=== PATIENT | male | born 1970 ===

== ENCOUNTER 2018-05-31 13:20 | Emergency (ER) | payer MEDICAID, OTHER ==
[2018-05-31 13:21] VITALS: BMI 20.5
[2018-05-31 13:25] VITALS: TEMP 98
--- NOTE | 2018-05-31 13:47 | ED PDOC ---
HPI: General Adult Time Seen by Provider: 05/31/18 13:30 Chief Complaint (Nursing): Substance Abuse Chief Complaint (Provider): Substance Abuse History Per: Patient History/Exam Limitations: no limitations Onset/Duration Of Symptoms: Hrs Current Symptoms Are (Timing): Still Present Additional Complaint(s): 48 year old male presents to ED via EMS for substance abuse. Patient admits to snorting heroin and drinking alcohol. Otherwise, he denies any other complaints. PMD: no family provider Past Medical History Reviewed: Historical Data, Nursing Documentation, Vital Signs Vital Signs: Last Vital Signs Temp 98 F 05/31/18 13:22 Pulse 82 05/31/18 13:22 Resp 18 05/31/18 13:22 BP 117/71 05/31/18 13:22 Pulse Ox 99 05/31/18 13:22 - Medical History PMH: Anxiety, Depression, Schizophrenia Denies: Diabetes, Hepatitis, HIV, HTN, Seizures, Sexually Transmitted Disease - Family History Family History: States: Unknown Family Hx - Social History Current smoker - smoking cessation education provided: Yes Drugs: Other (heroin) - Immunization History Hx Tetanus Toxoid Vaccination: No Hx Influenza Vaccination: No Hx Pneumococcal Vaccination: No - Home Medications Home Medications: Ambulatory Orders Medication Instructions Recorded No Known Home Med 05/16/17 - Allergies Allergies/Adverse Reactions: Allergies Allergy/AdvReac Type Severity Reaction Status Date / Time No Known Allergies Allergy Verified 10/16/17 18:23 Review of Systems ROS Statement: Except As Marked, All Systems Reviewed And Found Negative Constitutional: Negative for: Fever, Chills Cardiovascular: Negative for: Chest Pain Respiratory: Negative for: Cough, Shortness of Breath Gastrointestinal: Negative for: Nausea, Vomiting, Abdominal Pain, Diarrhea Neurological: Negative for: Weakness, Numbness Psych: Positive for: Other (substance abuse) Physical Exam - Reviewed Nursing Documentation Reviewed: Yes Vital Signs Reviewed: Yes - Physical Exam Appears: Positive for: Well (arousable to stimuli), Non-toxic, No Acute Distress Head Exam: Positive for: ATRAUMATIC, NORMAL INSPECTION, NORMOCEPHALIC Skin: Positive for: Normal Color, Warm, Dry. Negative for: Rash Eye Exam: Positive for: EOMI, Normal appearance, PERRL ENT: Positive for: Normal ENT Inspection Neck: Positive for: Normal, Painless ROM, Supple. Negative for: Decreased ROM Cardiovascular/Chest: Positive for: Regular Rate, Rhythm Respiratory: Positive for: Normal Breath Sounds. Negative for: Decreased Breath Sounds, Wheezing, Respiratory Distress Gastrointestinal/Abdominal: Positive for: Normal Exam, Soft. Negative for: Tenderness, Guarding, Rebound Back: Positive for: Normal Inspection Extremity: Positive for: Normal ROM. Negative for: Tenderness, Pedal Edema, Deformity Neurologic/Psych: Positive for: Alert, Oriented (x3). Negative for: Motor/Sensory Deficits - ECG O2 Sat by Pulse Oximetry: 99 (RA) Pulse Ox Interpretation: Normal Medical Decision Making Medical Decision Making: Time: 1331 Initial Plan: Alcohol serum Drug screen Glucose, POC, Blood Reevaluation 22:00 Patient care endorsed to Dr. Martinez pending sobriety and final disposition. Scribe Attestation: Documented by Smita Mix, acting as a scribe for Meghan Renteria MD. Provider Scribe Attestation: All medical record entries made by the Scribe were at my direction and personally dictated by me. I have reviewed the chart and agree that the record accurately reflects my personal performance of the history, physical exam, medical decision making, and the department course for this patient. I have also personally directed, reviewed, and agree with the discharge instructions and disposition. Disposition - Patient ED Disposition Is Patient to be Admitted: Transfer of Care - Disposition Disposition Time: 22:00 Forms: [employer] (American) Patient Signed Over To: Raimundo Martinez
[2018-05-31 22:02] VITALS: O2SAT 99
--- NOTE | 2018-05-31 22:56 | ED PDOC ---
- ECG O2 Sat by Pulse Oximetry: 99 (RA) Pulse Ox Interpretation: Normal Medical Decision Making Medical Decision Making: Time: 22:00 Patient care endorsed from Dr. Renteria to provider pending sobriety and final disposition. 0100 pt sleeping comfortable in no distress 03:44 Patient is stable for discharge and requires no further treatment in the ED at this time. pt ambulating stable gait, awake and alert. Diagnosis is polysubstance abuse. Return precautions provided. Scribe Attestation: Documented by Maury Travis acting as a scribe for Raimundo Martinez MD. Provider Scribe Attestation: All medical record entries made by the Scribe were at my direction and personally dictated by me. I have reviewed the chart and agree that the record accurately reflects my personal performance of the history, physical exam, medical decision making, and the department course for this patient. I have also personally directed, reviewed, and agree with the discharge instructions and disposition. Disposition - Clinical Impression Clinical Impression: Polysubstance abuse - POA Present On Arrival: None - Disposition Referrals: [facility] [Outside] [facility] [Outside] Disposition: Routine/Home Disposition Time: :44 Condition: IMPROVED Additional Instructions: follow up in clinic return to the ED with any worsening or concerning symptoms Instructions: Drug Abuse and Drug Addiction (DC) Forms: [employer] (Nepali)
[2018-06-01 02:13] LABS: BARBITURATES, UR NEGATIVE (NEGATIVE); BENZODIAZEPINES, UR POSITIVE (NEGATIVE); OPIATES, UR POSITIVE (NEGATIVE); PHENCYCLIDINE, UR NEGATIVE (NEGATIVE)
[2018-06-01 03:53] VITALS: BP 112/64; PULSE 69; RESP 16
--- NOTE | 2018-06-03 13:59 | CARD ---
APPROVED REPORT Date of service: 05/31/2018 EKG Measurement Heart [id number] [place] [id number] [id number] <Conclusion> Normal sinus rhythm Normal ECG
== END 2018-06-01 03:54 | disposition home or self-care (01) ==
LOC: H.ER 13:20
DX: F19.10 Other psychoactive substance abuse, uncomplicated (principal); F20.9 Schizophrenia, unspecified; F32.9 Major depressive disorder, single episode, unspecified; F41.9 Anxiety disorder, unspecified; F17.200 Nicotine dependence, unspecified, uncomplicated
CPT/HCPCS: 80320; 80324; 80345; 80346; 80349; 80353; 80358; 80361; 82948; 83992; 96372; 99285; J1630; J2060